=== PATIENT | male | born 1975 | race African-American/Black ===

== ENCOUNTER 2017-01-08 21:32 | Emergency (ER) | payer SELFPAY ==
[~2017-01-08] VITALS: Ht 180.3 cm; Wt 77.1 kg
[~2017-01-08 21:32] MED LIST: CEPH-264 PO; IBUP-1007 PO
[2017-01-08] MEDS ORDERED: HYDR-2867 PO (22:10)
--- NOTE | 2017-01-08 22:15 | PHYS DOC ---
Past Medical History Past Medical History: Asthma, Hypertension, Other Additional Past Medical Histor: Fx small toe L)foot. Past Surgical History: No Surgical History Alcohol Use: Heavy Drug Use: Marijuana Adult General Chief Complaint Chief Complaint: HYPERTENSION HPI HPI 41-year-old male presenting to the emergency department today with feeling mildly fast heart beat and having a history of high blood pressure. This started approximately 8-9 hours ago. He denies chest pain shortness of breath he denies fevers chills cough vision changes headache. Denies decreased urine output. He denies hemoptysis unilateral leg swelling personal or family history of blood clotting disorders. He denies chest pain shortness of breath hypoxia. He denies cyanosis. He denies long plane rides or immobilization. Review of systems is negative for chest pain shortness of breath abdominal pain nausea vomiting. He denies any symptoms other than feeling a mildly fast heart rate. All other review of systems is negative unless otherwise noted in history of present illness. Review of Systems Review of Systems SEE ABOVE. Allergies Allergies Allergies Coded Allergies Type Severity Reaction Last Updated Verified iodine Allergy Intermediate 07/26/14 No Physical Exam Physical Exam Constitutional: Well developed, well nourished, no acute distress, non-toxic appearance. HENT: Normocephalic, atraumatic, bilateral external ears normal, oropharynx moist, no oral exudates, nose normal. []. Eyes: PERRLA, EOMI, conjunctiva normal, no discharge. [] Patient reports normal vision. Neck: Normal range of motion, no tenderness, supple, no stridor. Cardiovascular:Heart rate regular rhythm, no murmur [] Lungs & Thorax: Bilateral breath sounds clear to auscultation no crackles on auscultation. No wheezing. Abdomen: Soft nontender abdomen without rebound tenderness or guarding present. Negative McBurneys point. Negative Dowell sign. No ecchymosis present. Skin: Warm, dry, no erythema, no rash. [] Back: No tenderness, no CVA tenderness. Extremities: No tenderness, no cyanosis, no clubbing, ROM intact, no edema. [] Neurologic: Alert and oriented X 3, normal motor function, normal sensory function, no focal deficits noted. Psychologic: Affect normal, judgement normal, mood normal. [] Current Patient Data Vital Signs Vital Signs Date Time Temp Pulse Resp B/P Pulse Ox O2 Delivery O2 Flow Rate FiO2 3/5/17 21:40 98.2 114 16 171/98 96 Room Air 98.2 EKG EKG [] Radiology/Procedures Radiology/Procedures [] Course & Med Decision Making Course & Med Decision Making Pertinent Labs and Imaging studies reviewed. (See chart for details) [] 41-year-old male presenting with hypertension and mild tachycardia. EKG shows sinus tachycardia. Not suggestive of ischemia. Patient's clinical presentation without any pain of the chest or shortness of breath. Clinical presentation not suggestive of ischemia. Vital signs showed tachycardia. Afebrile. Otherwise hypertensive. Pertinent physical exam findings showed normal lung findings normal abdominal findings. Normal physical exam. Patient denies any symptoms other than feeling mildly fast heart rate. He was subsequently discharged home to follow up with his primary care doctor over the next 2-3 days if his symptoms did not improve. Dragon Disclaimer Dragon Disclaimer This electronic medical record was generated, in whole or in part, using a voice recognition dictation system. Departure Departure Impression: Primary Impression: Asymptomatic hypertension Additional Impression: Sinus tachycardia Disposition: 01 HOME, SELF-CARE Condition: STABLE Referrals: NO PCP (PCP) ARRON ARREDONDO MD Patient Instructions: Hypertension, Nonspecific Tachycardia Additional Instructions: Thank you for allowing us to participate in your care today. Followup with your primary care physician in 3 days if your symptoms do not improve. If you do not have a primary care provider you can ask for a list of our primary care providers. Return to the emergency department you have any new or concerning findings. This should be evaluated by the primary care physician and any necessary consulting services for continued management within a few days after discharge. Return to emergency room if you have any new or concerning symptoms including but not limited to fever, chills, nausea, vomiting, intractable pain, any new rashes, chest pain, shortness of air, uncontrolled bleeding, difficulty breathing, and/or vision loss. Scripts Hydralazine Hcl 10 Mg Tablet1 Tab PO BID #10 TAB Ref 3 Prov:CLARA REGAN MD 01/08/17 Problem Qualifiers CLARA REGAN MD Jan 08, 2017 22:14
[2017-01-08 22:20] VITALS: BP 151/75
--- NOTE | 2017-01-09 06:45 | EKG ---
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 RI6.01 Unconfirmed report No previous ECG available for comparison Electronically Signed On 01-09-2017 14:15:59 STAFF SONOGRAPHER by Sandor Quiroz
== END 2017-01-08 22:23 | disposition home or self-care (01) ==
LOC: ER 21:32
DX: R00.0 Tachycardia, unspecified (principal); I10 Essential (primary) hypertension; J45.909 Unspecified asthma, uncomplicated; F12.10 Cannabis abuse, uncomplicated; F10.10 Alcohol abuse, uncomplicated; Z91.041 Radiographic dye allergy status
CPT/HCPCS: 93005; 99283-25

== ENCOUNTER 2017-01-31 15:54 | Emergency (ER) | payer SELFPAY ==
[~2017-01-31] VITALS: Ht 180.3 cm; Wt 77.1 kg
[~2017-01-31 15:54] MED LIST changes: +HYDR-2867 PO
[2017-01-31 16:13] VITALS: BP 158/93
--- NOTE | 2017-01-31 16:30 | PHYS DOC ---
Past Medical History Past Medical History: Asthma, Hypertension, Other Additional Past Medical Histor: Fx small toe L)foot. Past Surgical History: No Surgical History Alcohol Use: Heavy Drug Use: Marijuana Adult General Chief Complaint Chief Complaint: MEDICATION REFILL [facility] HPI Patient is a 42 year old male, with a history of hypertension, comes emergency room today requesting a refill on his blood pressure medicine. Patient states he took his last dose this morning. He states that he does not have a primary care doctor in which to follow-up primarily due to lack of insurance and the cost prohibitive. Patient denies headaches, visual disturbances, chest pain, palpitations, exertional dyspnea, orthopnea or PND. He denies any focal weaknesses or altered sensations in his body. Review of Systems Review of Systems Constitutional: Denies fever or chills [] Eyes: Denies change in visual acuity, redness, or eye pain [] HENT: Denies nasal congestion or sore throat [] Respiratory: Denies cough or shortness of breath [] Cardiovascular: No additional information not addressed in HPI [] GI: Denies abdominal pain, nausea, vomiting, bloody stools or diarrhea [] : Denies dysuria or hematuria [] Musculoskeletal: Denies back pain or joint pain [] Integument: Denies rash or skin lesions [] Neurologic: Denies headache, focal weakness or sensory changes [] Endocrine: Denies polyuria or polydipsia [] Allergies Allergies Allergies Coded Allergies Type Severity Reaction Last Updated Verified iodine Allergy Intermediate 07/26/14 No Physical Exam Physical Exam Constitutional: Well developed, well nourished, no acute distress, non-toxic appearance. [] HENT: Normocephalic, atraumatic, bilateral external ears normal, oropharynx moist, no oral exudates, nose normal. [] Eyes: PERRLA, EOMI, conjunctiva normal, no discharge. [] Neck: Normal range of motion, no tenderness, supple, no stridor. [] Cardiovascular:Heart rate regular rhythm, no murmur [] Lungs & Thorax: Bilateral breath sounds clear to auscultation [] Abdomen: Bowel sounds normal, soft, no tenderness, no masses, no pulsatile masses. [] Skin: Warm, dry, no erythema, no rash. [] Back: No tenderness, no CVA tenderness. [] Extremities: No tenderness, no cyanosis, no clubbing, ROM intact, no edema. [] Neurologic: Alert and oriented X 3, normal motor function, normal sensory function, no focal deficits noted. [] Psychologic: Affect normal, judgement normal, mood normal. [] Current Patient Data Vital Signs Vital Signs Date Time Temp Pulse Resp B/P Pulse Ox O2 Delivery O2 Flow Rate FiO2 01/31/17 16:13 97.9 98 16 98 Room Air 97.9 EKG EKG [] Radiology/Procedures Radiology/Procedures [] Course & Med Decision Making Course & Med Decision Making Pertinent Labs and Imaging studies reviewed. (See chart for details) [] Dragon Disclaimer Dragon Disclaimer This electronic medical record was generated, in whole or in part, using a voice recognition dictation system. Departure Departure Impression: Primary Impression: Asymptomatic hypertension Additional Impression: Medication refill Disposition: HOME, SELF-CARE Condition: GOOD Referrals: NO PCP (PCP) Patient Instructions: Hypertension, [id number], Medication Refill, Emergency Department Additional Instructions: 1. Take the medication as prescribed. 2. Review the discharge instructions provided for self-care and reasons to return the emergency department. 3. A pamphlet is provided to you for assistance in finding a primary care doctor to address your medical concerns. Scripts Hydralazine Hcl 10 Mg Tablet1 Tab PO BID #60 TAB Ref 1 Prov:MARQUIS ROBLES 01/31/17 Problem Qualifiers MARQUIS ROBLES Jan 31, 2017 16:30
[2017-01-31] MEDS ORDERED: HYDR-2867 PO (16:32)
== END 2017-01-31 16:39 | disposition home or self-care (01) ==
LOC: ER 15:54
DX: I10 Essential (primary) hypertension (principal); Z76.0 Encounter for issue of repeat prescription; J45.909 Unspecified asthma, uncomplicated; F12.10 Cannabis abuse, uncomplicated; Z91.041 Radiographic dye allergy status
CPT/HCPCS: 99283

== ENCOUNTER 2017-09-22 11:36 | Emergency (ER) | payer SELFPAY ==
[~2017-09-22] VITALS: Ht 180.3 cm; Wt 68.0 kg
[2017-09-22] MEDS ORDERED: IV NORMAL SALINE 1000ML BAG 1,000 ML IV SCH (12:15)
[2017-09-22 12:31] LABS: CALCIUM 9.2 mg/dL (8.5-10.1); CREATININE 1.1 mg/dL (0.7-1.3); GFR 88.8
[2017-09-22 12:34] LABS: BASO % 0 % (0-3); EOS % 4 % (0-3); HEMATOCRIT 43.4 % (39.0-53.0); HEMOGLOBIN 14.2 g/dL (13.0-17.5); LYMPH # 2.3 x10^3/uL (1.0-4.8); LYMPH % 26 % (24-48); MEAN CORPUSCULAR HEMOGLOBIN 29 pg (25-35); MEAN CORPUSCULAR HGB CONC 33 g/dL (31-37); MEAN CORPUSCULAR VOLUME 87 fL (79-100); MONO % 8 % (0-9); NEUT % 63 % (31-73); PLATELET COUNT 239 x10^3/uL (140-400); RED BLOOD COUNT 4.97 x10^6/uL (4.30-5.70); RED CELL DISTRIBUTION WIDTH 13.2 % (11.5-14.5)
--- NOTE | 2017-09-22 12:36 | RAD ---
Portable chest, 09/22/2017: History: Palpitations Comparison is made to a study from 10/11/2010. The heart size and pulmonary vascularity are normal. No pulmonary infiltrates are seen. There is no evidence of pleural fluid. IMPRESSION: No acute cardiopulmonary abnormality is detected.
--- NOTE | 2017-09-22 12:40 | EKG ---
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
[2017-09-22 14:14] VITALS: BP 150/84
--- NOTE | 2017-09-22 14:30 | PHYS DOC ---
Past Medical History Past Medical History: Asthma, Hypertension, Other Additional Past Medical Histor: Fx small toe L)foot. Past Surgical History: No Surgical History Alcohol Use: Heavy Drug Use: Marijuana Adult General Chief Complaint Chief Complaint: Palpitations HPI HPI Patient is a 42 year old [f__sex] who presents with [] Review of Systems Review of Systems Constitutional: Denies fever or chills [] Eyes: Denies change in visual acuity, redness, or eye pain [] HENT: Denies nasal congestion or sore throat [] Respiratory: Denies cough or shortness of breath [] Cardiovascular: No additional information not addressed in HPI [] GI: Denies abdominal pain, nausea, vomiting, bloody stools or diarrhea [] : Denies dysuria or hematuria [] Musculoskeletal: Denies back pain or joint pain [] Integument: Denies rash or skin lesions [] Neurologic: Denies headache, focal weakness or sensory changes [] Endocrine: Denies polyuria or polydipsia [] All other systems were reviewed and found to be within normal limits, except as documented in this note. Current Medications Current Medications Current Medications Medications (Trade) Dose Ordered Sig/Mildred Start Time Stop Time Status Last Admin Dose Admin Sodium Chloride 1,000 ml @ 999 mls/hr Q1H1M 09/22/17 12:15 09/22/17 12:28 999 MLS/HR Allergies Allergies Allergies Coded Allergies Type Severity Reaction Last Updated Verified iodine Allergy Intermediate 07/26/14 No Physical Exam Physical Exam Constitutional: Well developed, well nourished, no acute distress, non-toxic appearance. [] HENT: Normocephalic, atraumatic, bilateral external ears normal, oropharynx moist, no oral exudates, nose normal. [] Eyes: PERRLA, EOMI, conjunctiva normal, no discharge. [] Neck: Normal range of motion, no tenderness, supple, no stridor. [] Cardiovascular:Heart rate regular rhythm, no murmur [] Lungs & Thorax: Bilateral breath sounds clear to auscultation [] Abdomen: Bowel sounds normal, soft, no tenderness, no masses, no pulsatile masses. [] Skin: Warm, dry, no erythema, no rash. [] Back: No tenderness, no CVA tenderness. [] Extremities: No tenderness, no cyanosis, no clubbing, ROM intact, no edema. [] Neurologic: Alert and oriented X 3, normal motor function, normal sensory function, no focal deficits noted. [] Psychologic: Affect normal, judgement normal, mood normal. [] Current Patient Data Vital Signs Vital Signs Date Time Temp Pulse Resp B/P (MAP) Pulse Ox O2 Delivery O2 Flow Rate FiO2 09/22/17 14:14 62 14 150/84 (106) 98 Room Air 09/22/17 11:49 98.0 98.0 Lab Values Laboratory Tests Test 09/22/17 12:05 White Blood Count 9.0 x10^3/uL (4.0-11.0) Red Blood Count 4.97 x10^6/uL (4.30-5.70) Hemoglobin 14.2 g/dL (13.0-17.5) Hematocrit 43.4 % (39.0-53.0) Mean Corpuscular Volume 87 fL (79-100) Mean Corpuscular Hemoglobin 29 pg (25-35) Mean Corpuscular Hemoglobin Concent 33 g/dL (31-37) Red Cell Distribution Width 13.2 % (11.5-14.5) Platelet Count 239 x10^3/uL (140-400) Neutrophils (%) (Auto) 63 % (31-73) Lymphocytes (%) (Auto) 26 % (24-48) Monocytes (%) (Auto) 8 % (0-9) Eosinophils (%) (Auto) 4 % (0-3) H Basophils (%) (Auto) 0 % (0-3) Neutrophils # (Auto) 5.7 x10^3uL (1.8-7.7) Lymphocytes # (Auto) 2.3 x10^3/uL (1.0-4.8) Monocytes # (Auto) 0.7 x10^3/uL (0.0-1.1) Eosinophils # (Auto) 0.3 x10^3/uL (0.0-0.7) Basophils # (Auto) 0.0 x10^3/uL (0.0-0.2) Sodium Level 141 mmol/L (136-145) Potassium Level 4.0 mmol/L (3.5-5.1) Chloride Level 104 mmol/L (98-107) Carbon Dioxide Level 27 mmol/L (21-32) Anion Gap 10 (6-14) Blood Urea Nitrogen 11 mg/dL (8-26) Creatinine 1.1 mg/dL (0.7-1.3) Estimated GFR (Cockcroft-Gault) 88.8 Glucose Level 98 mg/dL (70-99) Calcium Level 9.2 mg/dL (8.5-10.1) Troponin I Quantitative < 0.017 ng/mL (0.000-0.055) Thyroid Stimulating Hormone (TSH) 1.707 uIU/mL (0.358-3.74) Laboratory Tests 09/22/17 12:05 Laboratory Tests 09/22/17 12:05 EKG EKG [] Radiology/Procedures Radiology/Procedures [] Course & Med Decision Making Course & Med Decision Making Pertinent Labs and Imaging studies reviewed. (See chart for details) [] Dragon Disclaimer Dragon Disclaimer This electronic medical record was generated, in whole or in part, using a voice recognition dictation system. Departure Departure Impression: Primary Impression: Palpitations Additional Impression: Tobacco abuse Disposition: 01 HOME, SELF-CARE Admitting Physician: Other (HARLAN NICOLE) Condition: GOOD Referrals: UNKNOWN PCP NAME (PCP) Patient Instructions: Palpitations Additional Instructions: You've been experiencing palpitations. Your workup today was reassuring and showed no threatening cause for your symptoms. Follow-up with your doctor in 1- 2 days for reevaluation and to discuss Holter monitoring as needed to rule out heart arrhythmia. Stop smoking and Return immediately for new severe worsening symptoms Problem Qualifiers ARRON CARO MD Sep 22, 2017 14:30
== END 2017-09-22 14:54 | disposition home or self-care (01) ==
LOC: ER 11:36
DX: R00.2 Palpitations (principal); F17.200 Nicotine dependence, unspecified, uncomplicated; I10 Essential (primary) hypertension; J45.909 Unspecified asthma, uncomplicated; F10.10 Alcohol abuse, uncomplicated; Z91.041 Radiographic dye allergy status
CPT/HCPCS: 36415; 71010; 80048; 84443; 84484; 85025; 93005; 96360; 96361; 99285; J7030

== ENCOUNTER 2017-12-12 19:02 | Emergency (ER) | payer BC | END 2017-12-12 20:36 | disposition home or self-care (01) | LOC: ER 19:02 | DX: I10 Essential (primary) hypertension (principal); J45.909 Unspecified asthma, uncomplicated; F17.200 Nicotine dependence, unspecified, uncomplicated; F10.20 Alcohol dependence, uncomplicated; Z91.041 Radiographic dye allergy status | CPT/HCPCS: 99285 ==

== ENCOUNTER 2021-01-06 14:04 | Emergency (ER) | payer SELFPAY ==
[~2021-01-06] VITALS: Ht 180.3 cm; Wt 83.0 kg
--- NOTE | 2021-01-06 14:59 | PHYS DOC ---
Past Medical History Past Medical History: Asthma, COPD, Hypertension Additional Past Medical Histor: Fx small toe L)foot. Past Surgical History: No Surgical History Smoking Status: Current Every Day Smoker Additional Information: 1 ppd Alcohol Use: Heavy Additional Information: reports drinking 6 beers daily Drug Use: None Social History Narrative: occasional use General Adult EDM: Chief Complaint: Congestion HPI: HPI: Patient is a 45 year old male who presented to ER with 2-day history of productive cough with yellow sputum, trouble breathing and nasal congestion for 2 days. Patient denies any headache, no neck pain, no chest pain. Patient denies any history of COVID-19 infection, no known exposure to COVID-19 infecti on. Patient is a smoker, he has COPD. Patient is not on oxygen. Review of Systems: Review of Systems: Constitutional: Denies fever or chills. [] Eyes: Denies change in visual acuity. [] HENT: Positive nasal congestion, no sore throat Respiratory: Positive for cough and trouble breathing Cardiovascular: Denies chest pain or edema. [] GI: Denies abdominal pain, nausea, vomiting, bloody stools or diarrhea. [] : Denies dysuria. [] Musculoskeletal: Denies back pain or joint pain. [] Integument: Denies rash. [] Neurologic: Denies headache, focal weakness or sensory changes. [] Endocrine: Denies polyuria or polydipsia. [] Lymphatic: Denies swollen glands. [] Psychiatric: Denies depression or anxiety. [] Heart Score: Risk Factors: Risk Factors: DM, Current or recent (<one month) smoker, HTN, HLP, family history of CAD, obesity. Risk Scores: Score 0 - 3: 2.5% MACE over next 6 weeks - Discharge Home Score 4 - 6: 20.3% MACE over next 6 weeks - Admit for Clinical Observation Score 7 - 10: 72.7% MACE over next 6 weeks - Early Invasive Strategies Allergies: Allergies: Allergies Coded Allergies Type Severity Reaction Last Updated Verified iodine Allergy Severe HIVES, THROAT SWELLING 01/06/21 No shellfish derived Allergy Severe THROAT SWELLING, HIVES 01/06/21 Yes Physical Exam: PE: Constitutional: Well developed, well nourished, no acute distress, non-toxic appearance. [] HENT: Normocephalic, atraumatic, bilateral external ears normal, oropharynx moist, no oral exudates, nose with clear drainage Eyes: PERRLA, EOMI, conjunctiva normal, no discharge. [] Neck: Normal range of motion, no tenderness, supple, no stridor. [] Cardiovascular:Heart rate regular rhythm, no murmur [] Lungs & Thorax: Bilateral breath sounds clear to auscultation [] Abdomen: Bowel sounds normal, soft, no tenderness, no masses, no pulsatile masses. [] Skin: Warm, dry, no erythema, no rash. [] Back: No tenderness, no CVA tenderness. [] Extremities: No tenderness, no cyanosis, no clubbing, ROM intact, no edema. [] Neurologic: Alert and oriented X 3, normal motor function, normal sensory function, no focal deficits noted. [] Psychologic: Affect normal, judgement normal, mood normal. [] Current Patient Data: Vital Signs: Vital Signs Date Time Temp Pulse Resp B/P (MAP) Pulse Ox O2 Delivery O2 Flow Rate FiO2 01/06/21 14:15 98.2 78 20 157/96 (116) 95 Room Air 98.2 EKG: EKG: [] Radiology/Procedures: Radiology/Procedures: Chest x-ray did not show any acute problem. Patient was found to have bronchitis, he was stable, will discharge him home. Course & Med Decision Making: Course & Med Decision Making Pertinent Labs and Imaging studies reviewed. (See chart for details) [] Dragon Disclaimer: Dragon Disclaimer: This electronic medical record was generated, in whole or in part, using a voice recognition dictation system. Departure Departure Impression: Primary Impression: Bronchitis Disposition: 01 DC HOME SELF CARE/HOMELESS Condition: IMPROVED Referrals: NO PCP (PCP) Patient Instructions: Acute Bronchitis Additional Instructions: Thank you for visiting our Emergency Department. We appreciate you trusting us with your care. If any additional problems come up don't hesitate to return to visit us. Please follow up with your primary care provider so they can plan additional care if needed and know about the problem that you had. If symptoms worsen come back to the Emergency Department. Any concerning symptoms that start such as chest pain, shortness of air, weakness or numbness on one side of the body, running high fevers or any other concerning symptoms return to the ER. Scripts Prednisone (PREDNISONE) 20 Mg Tablet 2 TAB PO DAILY for 7 Days, #14 TAB Prov: DEAN,PETER T DO 01/06/21 Azithromycin (ZITHROMAX) 250 Mg Tablet 1 PKG PO UD, #6 TAB Prov: CORNELIO DEAN DO 01/06/21 CORNELIO DEAN DO Jan 06, 2021 14:59
--- NOTE | 2021-01-06 15:21 | RAD ---
XR CHEST 1V Clinical Indication: Reason: COUGH, SOA FOR 2 DAYS / Spl. Instructions: / History: Comparison: AP chest September 22, 2017. Findings: The cardiomediastinal silhouette is normal. Lungs are clear. There is no pneumothorax. No pleural eff usion is appreciated. No acute bone abnormality. IMPRESSION: No acute cardiopulmonary process. Electronically signed by: Salvatore Fairchild MD (01/06/2021 3:19 PM) [facility]
[2021-01-06] MEDS ORDERED: PRED20TA PO (15:23)
[2021-01-06] MEDS ORDERED: AZIT250T PO (15:23)
[2021-01-06 15:47] VITALS: BP 177/77
--- NOTE | 2021-01-08 08:55 | NUR ---
AP: Attempted to contact pt concerning COVID results. No answer. voicemail message was from someone other than pt. Left a message to have pt return the call.
== END 2021-01-06 15:47 | disposition home or self-care (01) ==
LOC: ER 14:04
DX: J40 Bronchitis, not specified as acute or chronic (principal); Z20.822 Contact with and (suspected) exposure to COVID-19; R05 Cough; R09.81 Nasal congestion; J44.9 Chronic obstructive pulmonary disease, unspecified; I10 Essential (primary) hypertension; F17.200 Nicotine dependence, unspecified, uncomplicated; F10.10 Alcohol abuse, uncomplicated; Z98.890 Other specified postprocedural states; Z91.013 Allergy to seafood
CPT/HCPCS: 71045; 99284; C9803; U0003

== ENCOUNTER 2021-01-26 11:14 | Emergency (ER) | payer SELFPAY ==
[~2021-01-26] VITALS: Ht 180.3 cm; Wt 80.0 kg
[~2021-01-26 11:14] MED LIST changes: +AZIT250T PO; +PRED20TA PO
[2021-01-26 11:20] VITALS: BP 160/101
--- NOTE | 2021-01-26 11:48 | ED.ADGEN ---
Past Medical History Past Medical History: Asthma, COPD, Hypertension Additional Past Medical Histor: Fx small toe L)foot. Past Surgical History: No Surgical History Smoking Status: Current Every Day Smoker Alcohol Use: Heavy Drug Use: None General Adult EDM: Chief Complaint: COUGH HPI: HPI: Patient is a 46 year old AA male who presents emergency department with complaints of continued productive cough with yellow to clear sputum, nasal congestion, postnasal drainage, and intermittent wheezing for over a month. Patient denies any recent fever, body aches, chills, fatigue, or loss of smell/taste. He reports that at times his throat has felt a little sore and he has had frequent throat clearing. Patient denies any known exposure to COVID- 19. Patient reports history of asthma and COPD, he reports his primary care doctor put him on an inhaler that has steroids in it but he has not been taking it because his albuterol inhaler helps when he is wheezing. He denies any ear pain, chest pain, palpitations, abdominal pain, nausea, vomiting, diarrhea, rash, headache, or dizziness. The patient currently denies any pain. Review of Systems: Review of Systems: Complete ROS is negative unless otherwise noted in HPI. Allergies: Allergies: Allergies Coded Allergies Type Severity Reaction Last Updated Verified iodine Allergy Severe HIVES, THROAT SWELLING 01/06/21 No shellfish derived Allergy Severe THROAT SWELLING, HIVES 01/06/21 Yes Physical Exam: PE: See Above Constitutional: Well developed, well nourished, no acute distress, nontoxic appe arance HENT: Normocephalic, atraumatic, bilateral external ears normal, cobblestone appearance of posterior pharynx, moist mucous membranes; nose congested with erythema and edema of the nasal turbinates bilaterally Eyes: PERRLA, conjunctiva injected bilaterally, no discharge. [] Neck: Normal range of motion, supple, no stridor. [] Cardiovascular:Heart rate regular rhythm, no murmur [] Lungs & Thorax: Bilateral breath sounds clear to auscultation in upper lobes, occasional expiratory wheeze in lower lobes, respirations even and unlabored, no retractions, no respiratory distress Skin: Warm, dry, no erythema, no rash. [] Back: No tenderness Extremities: No cyanosis, ROM intact Neurologic: Alert and oriented X 3, no focal deficits noted. [] Psychologic: Affect normal, judgement normal, mood normal. Current Patient Data: Vital Signs: Vital Signs Date Time Temp Pulse Resp B/P (MAP) Pulse Ox O2 Delivery O2 Flow Rate FiO2 01/26/21 11:20 97.6 98 18 160/101 (120) 98 Room Air 97.6 EKG: EKG: [] Heart Score: C/O Chest Pain: No Risk Factors: Risk Factors: DM, Current or recent (<one month) smoker, HTN, HLP, family history of CAD, obesity. Risk Scores: Score 0 - 3: 2.5% MACE over next 6 weeks - Discharge Home Score 4 - 6: 20.3% MACE over next 6 weeks - Admit for Clinical Observation Score 7 - 10: 72.7% MACE over next 6 weeks - Early Invasive Strategies Radiology/Procedures: Radiology/Procedures: PROCEDURE: PORTABLE CHEST 1V XR CHEST 1V History: Cough and wheezing, COPD asthma problems Comparison: 01/06/2021 Technique: AP radiograph of the chest. Findings: The lungs are adequately and symmetrically inflated. No airspace consolidation, pleural effusion or pneumothorax. The cardiomediastinal silhouette and pulmonary vasculature are within normal limits. No acute osseous abnormality. Soft tissues are unremarkable. Impression: 1. No acute cardiopulmonary process.[] Course & Med Decision Making: Course & Med Decision Making Pertinent Labs and Imaging studies reviewed. (See chart for details) [] 46-year-old male presents emergency department with complaints of chronic cough, chest x-ray revealed no acute findings. I had a thorough discussion with the patient and encouraged him to take his inhaled corticosteroid and uses rescue inhaler as previously prescribed by his primary care doctor. Pr escriptions written for Flonase and Zyrtec. Encouraged patient to follow-up with his primary care doctor in the next 1 to 2 days, return to the ER symptoms worsen or fever develops. Dragon Disclaimer: Dragon Disclaimer: This electronic medical record was generated, in whole or in part, using a voice recognition dictation system. Departure Departure Impression: Primary Impression: Allergic rhinitis Additional Impression: Chronic bronchitis with productive mucopurulent cough Disposition: 01 DC HOME SELF CARE/HOMELESS Condition: STABLE Referrals: NO PCP (PCP) Patient Instructions: Allergic Rhinitis, Cough, Adult, [id number] Additional Instructions: Fill the prescription(s) and use as directed. Take your inhaled corticosteroid inhaler and rescue inhaler as previously prescribed by your doctor at [facility] [place]. You may take Tylenol or ibuprofen as needed for pain/fever. Increase clear fluids. Avoid triggers such as smoke, fragrance, dust, and pollen. You may take OTC cough suppressants as needed. Follow-up with your primary care doctor in 1 to 2 days, return to the ER if symptoms worsen or if fever develops. Scripts Cetirizine Hcl (CETIRIZINE HCL) 10 Mg Tablet 1 TAB PO HS for 30 Days, #30 TAB 1 Refill Prov: FELIX HDEZ APRN 01/26/21 Fluticasone Propionate (Flonase Allergy Relief) 9.9 Ml [place].susp 2 SPRAYS NS DAILY for 30 Days, #1 BOTTLE 0 Refills Prov: FELIX HDEZ APRN 01/26/21 Problem Qualifiers Primary Impression: Allergic rhinitis Allergic rhinitis trigger: unspecified Allergic rhinitis seasonality: unspecified Qualified Codes: J30.9 - Allergic rhinitis, unspecified FELIX HDEZ APRN Jan 26, 2021 11:48
--- NOTE | 2021-01-26 12:03 | RAD ---
XR CHEST 1V History: Cough and wheezing, COPD asthma problems Comparison: 01/06/2021 Technique: AP radiograph of the chest. Findings: The lungs are adequately and symmetrically inflated. No airspace consolidation, pleural effusion or p neumothorax. The cardiomediastinal silhouette and pulmonary vasculature are within normal limits. No acute osseous abnormality. Soft tissues are unremarkable. Impression: 1. No acute cardiopulmonary process. Electronically signed by: Ezequiel Her MD (01/26/2021 12:00 PM) [facility]
[2021-01-26] MEDS ORDERED: CETI10TA16 PO (12:14)
[2021-01-26] MEDS ORDERED: FLUT9.9S NS (12:14)
== END 2021-01-26 12:25 | disposition home or self-care (01) ==
LOC: ER 11:14
DX: J30.9 Allergic rhinitis, unspecified (principal); J44.9 Chronic obstructive pulmonary disease, unspecified; R05 Cough; R09.81 Nasal congestion; I10 Essential (primary) hypertension; F17.200 Nicotine dependence, unspecified, uncomplicated; F12.90 Cannabis use, unspecified, uncomplicated; Z98.890 Other specified postprocedural states; Z91.013 Allergy to seafood
CPT/HCPCS: 71045; 99283